=== PATIENT | female | born 1990 | race Caucasian/White ===

== ENCOUNTER 2016-12-07 17:30 | Inpatient (IN) | payer BC ==
[~2016-12-07] VITALS: Ht 157.5 cm; Wt 78.6 kg
[2016-12-07 17:57] VITALS: BP 119/67
[2016-12-07] MEDS ORDERED: LIDOCAINE 1%, 20ML ONE (18:47)
[2016-12-07] MEDS ORDERED: NEWBORN KIT ONE (18:47)
[2016-12-07] MEDS ORDERED: MISOPROSTOL 200 MCG TABLET ONE (18:47)
[2016-12-07] MEDS ORDERED: OXYTOCIN 30U/ 0.9% NaCL 500ML 500 ML ONE (18:47)
[2016-12-07] MEDS ORDERED: AMPICILLIN 2 GM in SODIUM CHLORIDE 0.9% 100 ML IVPB STA (18:53)
[2016-12-07] MEDS: D5%-LACTATED RINGERS 1,000 ML IV SCH (18:53)
[2016-12-07] MEDS ORDERED: OXYTOCIN 30U/ 0.9% NaCL 500ML 500 ML IV ONE (18:53)
[2016-12-07] MEDS ORDERED: METOCLOPRAMIDE 5 MG/ML, 2ML IVPush PRN (19:00)
[2016-12-07] MEDS ORDERED: ONDANSETRON 2MG/ML, 2ML IVPush PRN (19:00)
[2016-12-07] MEDS ORDERED: FENTANYL PF 100 MCG/2ML IV PRN (19:00)
[2016-12-07] MEDS ORDERED: SODIUM CITRATE/CITRIC ACID 30 ML UDC PO PRN (19:00)
[2016-12-07] MEDS ORDERED: TERBUTALINE 1 MG/ML, 1ML IVPush PRN (19:00)
[2016-12-07] MEDS: LACTATED RINGERS 1,000 ML IV SCH (19:17)
[2016-12-07] MEDS ORDERED: OXYTOCIN 30U/ 0.9% NaCL 500ML 500 ML IV PRN (19:30)
[2016-12-07] MEDS: AMPICILLIN 1 GM in SODIUM CHLORIDE 0.9% 50 ML IVPB SCH ×2 (23:00→23:30)
[2016-12-07] MEDS ORDERED: FENTANYL PF 100 MCG/2ML ONE (23:43)
[2016-12-07] MEDS ORDERED: ONDANSETRON 2MG/ML, 2ML ONE (23:43)
[2016-12-07] MEDS: FENTANYL PF 100 MCG/2ML IVPush PRN (23:48)
[2016-12-08] MEDS ORDERED: FENTANYL/BUPIV./NS/PF 250 ML EPIDCONT ONE (02:10)
[2016-12-08] MEDS: LACTATED RINGERS 1,000 ML IV SCH ×2 (02:33→04:56)
[2016-12-08] MEDS: AMPICILLIN 1 GM in SODIUM CHLORIDE 0.9% 50 ML IVPB SCH ×2 (03:51→08:36)
[2016-12-08] MEDS: D5%-LACTATED RINGERS 1,000 ML IV SCH ×2 (03:54→10:53)
[2016-12-08] MEDS ORDERED: FENTANYL PF 100 MCG/2ML ONE (09:32)
[2016-12-08] MEDS: FENTANYL PF 100 MCG/2ML IVPush PRN (09:33)
[2016-12-08] MEDS ORDERED: OXYTOCIN 30U/ 0.9% NaCL 500ML 500 ML IV SCH (09:57)
[2016-12-08] MEDS ORDERED: MISOPROSTOL 200 MCG TABLET PR ONE (10:00)
[2016-12-08] MEDS ORDERED: OXYTOCIN 10 UNITS/ML, 1ML IM PRN (10:00)
[2016-12-08] MEDS ORDERED: ACETAMINOPHEN 325 MG TABLET PO PRN (10:00)
[2016-12-08] MEDS ORDERED: OXYcodone/APAP 5/325MG TABLET PO PRN (10:00)
[2016-12-08] MEDS ORDERED: CARBOPROST TROMETHAMINE 250 MCG/ML, 1ML IM PRN (10:00)
[2016-12-08] MEDS ORDERED: MISOPROSTOL 200 MCG TABLET PR PRN (10:00)
[2016-12-08] MEDS ORDERED: ONDANSETRON 2MG/ML, 2ML IV PRN (10:00)
[2016-12-08] MEDS ORDERED: METHYLERGONOVINE 0.2 MG/ML IM PRN (10:00)
[2016-12-08] MEDS ORDERED: OXYTOCIN 30U/ 0.9% NaCL 500ML 500 ML ONE (10:01)
[2016-12-08] MEDS ORDERED: OXYcodone/APAP 5/325MG TABLET ONE (10:56)
[2016-12-08] MEDS ORDERED: IBUPROFEN 600 MG TABLET ONE (10:56)
[2016-12-08] MEDS: IBUPROFEN 600 MG TABLET PO PRN ×2 (10:58→19:57)
[2016-12-08] MEDS: OXYcodone/APAP 5/325MG TABLET PO PRN ×3 (10:58→19:57)
[2016-12-08 12:00] VITALS: BP 138/83
[2016-12-08 16:44] VITALS: BP 124/73
[2016-12-08 19:20] VITALS: BP 118/76
[2016-12-08] MEDS: DOCUSATE 100 MG CAPSULE PO PRN (19:57)
[2016-12-09 00:45] VITALS: BP 114/69
[2016-12-09] MEDS: OXYcodone/APAP 5/325MG TABLET PO PRN ×3 (01:19→19:58)
[2016-12-09 05:45] VITALS: BP 117/79
[2016-12-09] MEDS: IBUPROFEN 600 MG TABLET PO PRN ×3 (05:54→19:58)
[2016-12-09 08:08] VITALS: BP 123/78
[2016-12-09] MEDS: PRENATAL VIT/IRON/FA 1 EACH TABLET PO SCH (09:00)
[2016-12-09] MEDS ORDERED: MEASLES,MUMPS&RUBELLA VACC/PF 0.5 ML SQ-VACC ONE (16:30)
[2016-12-09 20:45] VITALS: BP 132/84
[2016-12-09] MEDS: DOCUSATE 100 MG CAPSULE PO PRN (23:18)
[2016-12-10] MEDS: IBUPROFEN 600 MG TABLET PO PRN ×2 (02:11→08:28)
[2016-12-10] MEDS: OXYcodone/APAP 5/325MG TABLET PO PRN ×2 (02:11→12:24)
[2016-12-10 07:45] VITALS: BP 123/73
[2016-12-10] MEDS: PRENATAL VIT/IRON/FA 1 EACH TABLET PO SCH (08:28)
[2016-12-10] MEDS: DOCUSATE 100 MG CAPSULE PO PRN (08:28)
[2016-12-10] MEDS ORDERED: HYDR-3240 PO (10:53)
[2016-12-10] MEDS ORDERED: IBUP-1222 PO (10:54)
[2016-12-10] MEDS ORDERED: SENN8.6T4 PO (10:55)
== END 2016-12-10 12:31 | disposition home or self-care (01) | DRG 775 ==
LOC: LDOP 17:30 → LDIP 18:53 → 2NW 12-08 11:55
PROVIDERS: ADMIT Obstetrics & Gynecology; ATTEND Obstetrics & Gynecology
PROC: 10E0XZZ Delivery of Products of Conception, External Approach (ICD-10-PCS; principal; 2016-12-08)
PROC: 0DQR0ZZ Repair Anal Sphincter, Open Approach (ICD-10-PCS; 2016-12-08)
PROC: 0TQDXZZ Repair Urethra, External Approach (ICD-10-PCS; 2016-12-08)
PROC: 00HU33Z Insertion of Infusion Device into Spinal Canal, Percutaneous Approach (ICD-10-PCS; 2016-12-08)
PROC: 3E0R3CZ (ICD-10-PCS; 2016-12-08)
DX: O99.824 Streptococcus B carrier state complicating childbirth (principal); Z37.0 Single live birth; O42.92 Full-term premature rupture of membranes, unspecified as to length of time between rupture and onset of labor; Z3A.39 39 weeks gestation of pregnancy; O77.0 Labor and delivery complicated by meconium in amniotic fluid; O69.1XX0 Labor and delivery complicated by cord around neck, with compression, not applicable or unspecified; O70.20 Third degree perineal laceration during delivery, unspecified; O71.5 Other obstetric injury to pelvic organs; Z23 Encounter for immunization
CPT/HCPCS: 36415; 82803; 85025; 86850; 86900; J0290; J2405; J3010; J2590; J7120; J7121

== ENCOUNTER 2019-12-01 15:08 | Inpatient (IN) | payer BC ==
[~2019-12-01] VITALS: Ht 160 cm; Wt 79.5 kg
[~2019-12-01 15:08] MED LIST: HYDR-3240 PO; IBUP-1222 PO; SENN-190 PO
[2019-12-01 15:45] VITALS: BP 123/71
[2019-12-01] MEDS ORDERED: OXYTOCIN 30U/ 0.9% NaCL 500ML 500 ML IV ONE (16:09)
[2019-12-01] MEDS ORDERED: D5%-LACTATED RINGERS 1,000 ML IV SCH (16:09)
[2019-12-01] MEDS ORDERED: OXYTOCIN 30U/ 0.9% NaCL 500ML 500 ML IV PRN (16:09)
[2019-12-01] MEDS ORDERED: NEWBORN KIT ONE (16:17)
[2019-12-01] MEDS ORDERED: FENTANYL PF 100 MCG/2ML ONE ×2 (16:18→17:22)
[2019-12-01] MEDS ORDERED: LIDOCAINE 1%, 20ML ONE (16:18)
[2019-12-01] MEDS ORDERED: MISOPROSTOL 200 MCG TABLET ONE (16:18)
[2019-12-01] MEDS ORDERED: OXYTOCIN 30U/ 0.9% NaCL 500ML 500 ML ONE ×2 (16:18→22:34)
[2019-12-01 16:22] VITALS: BP 123/71
[2019-12-01] MEDS: LACTATED RINGERS 1,000 ML IV SCH ×3 (16:25→17:35)
[2019-12-01] MEDS ORDERED: METOCLOPRAMIDE 5 MG/ML, 2ML IVPush PRN (16:30)
[2019-12-01] MEDS ORDERED: SODIUM CITRATE/CITRIC ACID 30 ML UDC PO PRN (16:30)
[2019-12-01] MEDS ORDERED: TERBUTALINE 1 MG/ML, 1ML SQ PRN (16:30)
[2019-12-01] MEDS ORDERED: CALCIUM CARBONATE 500 MG TAB.CHEW PO PRN (16:30)
[2019-12-01] MEDS ORDERED: PENICILLIN GK 2,500,000 UNITS in DEXTROSE 5% 100 ML IVPB SCH (16:30)
[2019-12-01] MEDS ORDERED: FENTANYL PF 100 MCG/2ML IVPush PRN (16:30)
[2019-12-01] MEDS ORDERED: PENICILLIN GK 5,000,000 UNITS in DEXTROSE 5% 100 ML IVPB ONE (16:30)
[2019-12-01] MEDS ORDERED: TERBUTALINE 1 MG/ML, 1ML IVPush PRN (16:30)
[2019-12-01] MEDS ORDERED: FENTANYL PF 100 MCG/2ML IV PRN (16:30)
[2019-12-01 16:56] LABS: BASOPHILS # (AUTO) 0.09 x10^3/uL (0-0.1); BASOPHILS % (AUTO) 1 % (0-1); EOSINOPHILS # (AUTO) 0.05 x10^3/uL (0-0.4); EOSINOPHILS % (AUTO) 1 % (1-7); LYMPHOCYTES # (AUTO) 1.14 x10^3/uL (1-3.4); LYMPHOCYTES % (AUTO) 10 % (22-44); MD NO; MEAN CORPUSCULAR HEMOGLOBIN 30.3 pg (27.0-34.8); MEAN PLATELET VOLUME 9.7 fL (7.4-10.4); MONOCYTES # (AUTO) 0.65 x10^3/uL (0.2-0.8); MONOCYTES % (AUTO) 6 % (2-9); NEUTROPHILS # (AUTO) 9.14 x10^3/uL (1.8-6.8); NEUTROPHILS % (AUTO) 83 % (42-75); PLATELET COUNT 207 x10^3/uL (130-400); RED BLOOD COUNT 4.18 x10^6/uL (3.82-5.3); RED CELL DISTRIBUTION WIDTH 13.5 % (9.6-15.2)
[2019-12-01] MEDS ORDERED: BUPIVACAINE 0.25% ONE (17:22)
[2019-12-01] MEDS ORDERED: FENTANYL/BUPIV./NS/PF 250 ML EPIDCONT ONE (17:23)
[2019-12-01] MEDS ORDERED: LIDOCAINE/PF 1.5%-EPI 1:200K, 30ML ONE (17:24)
[2019-12-01] MEDS ORDERED: FENTANYL/BUPIV./NS/PF 250 ML EPIDCONT SCH (17:57)
[2019-12-01] MEDS ORDERED: LACTATED RINGERS 1,000 ML IV SCH (17:57)
[2019-12-01] MEDS ORDERED: LACTATED RINGERS 1,000 ML IVBOLUS PRN (18:00)
[2019-12-01] MEDS ORDERED: OXYTOCIN 30U/ 0.9% NaCL 500ML 500 ML IV SCH (19:42)
[2019-12-01] MEDS ORDERED: ACETAMINOPHEN 325 MG TABLET PO PRN (20:00)
[2019-12-01] MEDS ORDERED: OXYcodone/APAP 5/325MG TABLET PO PRN (20:00)
[2019-12-01] MEDS ORDERED: ONDANSETRON 2MG/ML, 2ML IV PRN (20:00)
[2019-12-01] MEDS ORDERED: SIMETHICONE 80 MG CHEW TAB PO PRN (20:00)
[2019-12-01] MEDS ORDERED: METHYLERGONOVINE 0.2 MG/ML IM PRN (20:00)
[2019-12-01] MEDS ORDERED: CARBOPROST TROMETHAMINE 250 MCG/ML, 1ML IM PRN (20:00)
[2019-12-01] MEDS ORDERED: MISOPROSTOL 200 MCG TABLET PR PRN (20:00)
[2019-12-01 22:50] VITALS: BP 104/69
[2019-12-01] MEDS: IBUPROFEN 600 MG TABLET PO PRN (22:53)
[2019-12-02] MEDS: OXYcodone/APAP 5/325MG TABLET PO PRN ×5 (00:48→21:44)
[2019-12-02 04:05] VITALS: BP 100/66
[2019-12-02 06:08] LABS: BASOPHILS # (AUTO) 0.03 x10^3/uL (0-0.1); BASOPHILS % (AUTO) 0 % (0-1); EOSINOPHILS % (AUTO) 1 % (1-7); LYMPHOCYTES # (AUTO) 1.57 x10^3/uL (1-3.4); LYMPHOCYTES % (AUTO) 12 % (22-44); MD NO; MEAN CORPUSCULAR HEMOGLOBIN 30.1 pg (27.0-34.8); MEAN CORPUSCULAR HGB CONC 32.9 g/dL (32.4-35.8); MONOCYTES # (AUTO) 0.87 x10^3/uL (0.2-0.8); MONOCYTES % (AUTO) 7 % (2-9); NEUTROPHILS # (AUTO) 10.75 x10^3/uL (1.8-6.8); NEUTROPHILS % (AUTO) 81 % (42-75); PLATELET COUNT 186 x10^3/uL (130-400); RED BLOOD COUNT 3.87 x10^6/uL (3.82-5.3); RED CELL DISTRIBUTION WIDTH 13.4 % (9.6-15.2)
[2019-12-02 07:30] VITALS: BP 101/66
[2019-12-02] MEDS: IBUPROFEN 600 MG TABLET PO PRN ×3 (07:59→21:44)
[2019-12-02] MEDS: DOCUSATE 100 MG CAPSULE PO PRN ×2 (07:59→21:44)
[2019-12-02] MEDS: PRENATAL VIT/IRON/FA 1 EACH TABLET PO SCH (08:00)
[2019-12-02 12:00] VITALS: BP 98/66
[2019-12-02 15:00] VITALS: BP 100/66
[2019-12-02 20:26] VITALS: BP 102/67
[2019-12-03] MEDS: IBUPROFEN 600 MG TABLET PO PRN (04:54)
[2019-12-03 08:00] VITALS: BP 114/74
[2019-12-03] MEDS: DOCUSATE 100 MG CAPSULE PO PRN (08:13)
[2019-12-03] MEDS: OXYcodone/APAP 5/325MG TABLET PO PRN (08:14)
[2019-12-03] MEDS: PRENATAL VIT/IRON/FA 1 EACH TABLET PO SCH (08:14)
[2019-12-03] MEDS ORDERED: OXYC-302 PO (08:43)
[2019-12-03] MEDS ORDERED: IBUP-1222 PO (08:44)
[2019-12-03] MEDS ORDERED: DOCU-131 PO (08:45)
== END 2019-12-03 11:15 | disposition home or self-care (01) | DRG 807 ==
LOC: LDOP 15:08 → LDIP 16:19 → 2NW 22:32
PROVIDERS: ADMIT Obstetrics & Gynecology; ATTEND Obstetrics & Gynecology
PROC: 10E0XZZ Delivery of Products of Conception, External Approach (ICD-10-PCS; principal; 2019-12-01)
PROC: 10907ZC Drainage of Amniotic Fluid, Therapeutic from Products of Conception, Via Natural or Artificial Opening (ICD-10-PCS; 2019-12-01)
PROC: 0HQ9XZZ Repair Perineum Skin, External Approach (ICD-10-PCS; 2019-12-01)
PROC: 3E0R3BZ Introduction of Anesthetic Agent into Spinal Canal, Percutaneous Approach (ICD-10-PCS; 2019-12-01)
PROC: 00HU33Z Insertion of Infusion Device into Spinal Canal, Percutaneous Approach (ICD-10-PCS; 2019-12-01)
DX: O99.824 Streptococcus B carrier state complicating childbirth (principal); Z37.0 Single live birth; O70.0 First degree perineal laceration during delivery; Z3A.40 40 weeks gestation of pregnancy; O77.0 Labor and delivery complicated by meconium in amniotic fluid
CPT/HCPCS: 36415; J3490; 85025; 86592; 86850; 86900; G0378; J2540; J3010; J7120